=== PATIENT | male | born 1940 | race Caucasian/White ===

== ENCOUNTER → 2016-11-10 | Outpatient (REF) ==
[~2016-11-10] MED LIST: CARDIZEM CD 12120 MG PO; FLOMAX 0.40.4 MG/CAP PO; GLUCOPHAGE XR500 M1 PO; HCTZ12.5TAB PO; LIPITOR 10MG10 MG PO; LUTEIN PO; MULTIVITAMIN1 SGL PO; NORCO 325 MG-51 TAB PO; TOVIAZ4 MG PO; ZETIA 10MG TAB10 MG PO
[2016-11-10 11:24] LABS: PSA-TOTAL 3.12 ng/mL (0-4); THYROID STIMULATING HORMONE 3.79 uIU/mL (0.465-4.680)
== END ==
LOC: ZLAB.WCH 10:38
PROVIDERS: Internal Medicine
DX: Z01.89 Encounter for other specified special examinations (principal)
CPT/HCPCS: G0103

== ENCOUNTER → 2017-05-31 | Outpatient (REF) | LOC: ZLAB.WCH 16:01 | DX: Z01.89 Encounter for other specified special examinations (principal) ==

== ENCOUNTER → 2017-11-29 | Outpatient (REF) ==
[2017-11-29 17:44] LABS: PSA-TOTAL 3.77 ng/mL (0-4)
== END ==
LOC: ZLAB.WCH 16:23
PROVIDERS: Internal Medicine
DX: Z01.89 Encounter for other specified special examinations (principal)
CPT/HCPCS: G0103

== ENCOUNTER → 2017-12-05 | Emergency (ER) | payer MEDICARE, BC, OTHER ==
[~2017-12-05] VITALS: Ht 170.2 cm; Wt 79.1 kg
[~2017-12-05] MED LIST changes: +ASPIRIN 81M81 MG/TA2 PO; +CEPHALEXIN500 M1 PO; +ELIQUIS 5MG PO
[2017-12-05 16:29] VITALS: TEMP 98.6
[2017-12-05 18:55] VITALS: BP 146/105; PULSE 75
== END ==
LOC: COL.ER 16:24
DX: S61.012A Laceration without foreign body of left thumb without damage to nail, initial encounter (principal); E11.9 Type 2 diabetes mellitus without complications; Z79.82 Long term (current) use of aspirin; Z79.84 Long term (current) use of oral hypoglycemic drugs; W26.8XXA Contact with other sharp object(s), not elsewhere classified, initial encounter; Y92.009 Unspecified place in unspecified non-institutional (private) residence as the place of occurrence of the external cause

== ENCOUNTER 2017-12-17 10:01 | Emergency (ER) | payer MEDICARE, BC, OTHER ==
[2017-12-17 10:04] VITALS: BP 161/107; PULSE 87; TEMP 97.5
== END 2017-12-17 10:16 | disposition home or self-care (01) ==
LOC: COL.ER 10:01
DX: S61.012D Laceration without foreign body of left thumb without damage to nail, subsequent encounter (principal); X58.XXXD Exposure to other specified factors, subsequent encounter

== ENCOUNTER 2021-05-06 03:48 | Inpatient (IN) | payer MEDICARE, BC, OTHER ==
[~2021-05-06] VITALS: Ht 165.1 cm; Wt 80.9 kg
[~2021-05-06 03:48] MED LIST changes: +ZOVIRAX400 MG PO
[2021-05-06 04:16] LABS: HEMATOCRIT 40.3 % (42.0-52.0); HEMOGLOBIN 13.6 g/dl (13.5-18.0); MEAN CELL VOLUME 85 fl (80.0-100.0); MEAN CORPUSCULAR HEMOGLOBIN 29 pg (27-31); MEAN CORPUSCULAR HGB CONC 34 g/dl (33.0-37.0); MEAN PLATELET VOLUME 10.4 fl (7.4-10.4); PLATELET COUNT 360 K/mm3 (130-400); RED BLOOD COUNT 4.74 M/mm3 (4.20-5.60); REDCELL DISTRIBUTION WIDTH-CV 14.8 % (11.5-14.5)
[2021-05-06 04:49] LABS: COLLECTION METHOD CLEAN CATCH
[2021-05-06 04:55] LABS: CALCIUM 9.9 mg/dL (8.4-10.2); CREATININE, serum 1.03 mg/dL (0.72-1.25); POTASSIUM 3.7 mmol/L (3.5-4.5); TOTAL PROTEIN 6.8 gm/dL (6.2-8.1)
[2021-05-06 04:55] LABS: LYMPHOCYTE 64 % (20.0-51.0); NEUTROPHILS 27 % (42.0-75.2)
[2021-05-06 04:57] LABS: PLATELET ESTIMATE NORMAL (NORMAL)
[2021-05-06 05:03] LABS: ARTERIAL BLD GAS O2 SATURATION 95.2 % (92-100); ARTERIAL BLD GAS TCO2 CT 20.5; ARTERIAL BLOOD GAS BASE EXCESS -2.7 (-2-2); ARTERIAL BLOOD GAS HCO3 19.6 meq/L (22-26); ARTERIAL BLOOD GAS PCO2 27.8 mmHg (35-45); ARTERIAL BLOOD GAS PO2 69.2 mmHg (80-100); ARTERIAL BLOOD GAS pH 7.47 (7.35-7.45)
[2021-05-06 05:05] LABS: MUCOUS Present (NOT PRESENT); PH 5 (5-8); SQUAMOUS EPITHELIAL None Seen /hpf (0-10); URINE APPEARANCE Clear (CLEAR/HAZY); URINE BACTERIA None Seen /hpf (NONE SEEN); URINE BILIRUBIN Negative (NEGATIVE); URINE BLOOD Negative (NEGATIVE); URINE COLOR Straw (YELLOW); URINE GLUCOSE Negative (NEGATIVE); URINE KETONE Negative (NEGATIVE); URINE LEUKOCYTE ESTERASE Negative (NEGATIVE); URINE NITRATE Negative (NEGATIVE); URINE PROTEIN(semi-quant) Negative (NEGATIVE); URINE RBC 0-2 /hpf (0-2); URINE UROBILINOGEN Negative (NEGATIVE)
[2021-05-06 05:08] LABS: TROPONIN-I 0.065 ng/mL (0.00-0.033)
--- NOTE | 2021-05-06 05:47 | NUR ---
PT HAS BEEN HAVING SOA SINCE 2WEEKS IN APR, HAS BEEN DIAGNOSED W VIRAL PNA- ON ANTIBOTICS BUT DIDNT FEEL LIKE IT WAS BETTER. HX AND ASSESS OBTAINED. POC DISCUSSED. EDDY CROSS AT BEDSIDE TO ASSESS AND GIVE ORDER. PT WANTS TO BE A FULL CODE.
[2021-05-06] MEDS ORDERED: PRINIVIL10 MG PO (06:00)
[2021-05-06] MEDS ORDERED: DITROPAN 5MG TAB5 MG PO (06:03)
[2021-05-06 07:46] VITALS: BP 144/105; PULSE 102; TEMP 98.5
--- NOTE | 2021-05-06 08:00 | NUR ---
Patient sitting up in the recliner. IV CDI. VSS. Denies pain and discomfort. No further needs expressed. Call light within reach
[2021-05-06 08:29] VITALS: BP 143/94
[2021-05-06 12:01] VITALS: BP 130/98; PULSE 74; TEMP 97.6
--- NOTE | 2021-05-06 13:13 | NUR ---
First visit from the financial recruiter. No needs right now.
--- NOTE | 2021-05-06 13:39 | NUR ---
latex foam worker met with patient to discuss discharge plan. Patient currently lives at home with his Margarita ([phone]) but states that they are currently on the waitlist for [facility]. Patient is independent with his ADL's and does not utilizes any DME to assist with mobility. Patient has no oxygen needs at home. PCP is Dr. Moran and he utilizes [facility] for medications. Patient reports that he does have a DPOA-HC established and that his and daughter Jeanette Almendarez ([phone]). Patient is planning on returning home once ready for discharge. Discharge plan: Home
[2021-05-06 14:30] LABS: PARTIAL THROMBOPLASTIN TIME 33.5 SECONDS (26.0-37.0)
[2021-05-06 15:56] VITALS: BP 128/99; PULSE 59; TEMP 98
--- NOTE | 2021-05-06 17:33 | NUR ---
Patient sitting up in the recliner. A&Ox4. VSS. IV CDI, fluids infusing. Denies pain and discomfort. No further needs expressed. Call light within reach
[2021-05-06 19:11] VITALS: BP 126/82; PULSE 48; TEMP 98.3
--- NOTE | 2021-05-06 22:21 | NUR ---
ALERT AND OX4. DENIES SOA, CHEST PAIN OR DIZZY. URINATING ALOT TODAY DUE TO LASIX. HEP GTT RUNNING PER ORDER, ADJUST AT 2000 DRAW BY 150 UNITS/HR TO 1150 UNITS/HR CURRENTLY. PM MEDS GIVEN. HARD TIME SLEEPING IN BED IS RESTING IN RECLINER. ACURATE I/O MAINTAINED. CALL LIGHT WI REACH.
[2021-05-07] VITALS (18 sets, daily range): BP systolic 93–137; BP diastolic 52–110; PULSE 34–99; TEMP 97.6–98.4
--- NOTE | 2021-05-07 02:54 | NUR ---
HEPARIN IS WITHIN THERAPUTIC RANGE. NO CHANGE IN RATE, NEXT PTT AT 0800AM, PT RESTING W EYES CLOSED.
--- NOTE | 2021-05-07 06:17 | NUR ---
RESTED THROUGH THE NIGHT WITHOUT INCIDENT. CALL LIGHT WI REACH. HEPARIN RUNNING PER ORDER.
--- NOTE | 2021-05-07 08:00 | NUR ---
pt alert resting in bed. Assessment completed. Telemetry in place. Heart rate irregular at 90bpm (apical pulse). No shortness of breath noted at rest. Pt has bilateral edema 2+ to lower extremities. Denies c/o pain. INT to right forearm intact no redness, no edema. Pt on NPO status for cardiac catheterization.
[2021-05-07 08:04] LABS: HEMATOCRIT 41.4 % (42.0-52.0); HEMOGLOBIN 14.1 g/dl (13.5-18.0); MEAN CELL VOLUME 84 fl (80.0-100.0); MEAN CORPUSCULAR HEMOGLOBIN 29 pg (27-31); MEAN CORPUSCULAR HGB CONC 34 g/dl (33.0-37.0); PLATELET COUNT 364 K/mm3 (130-400); RED BLOOD COUNT 4.92 M/mm3 (4.20-5.60); REDCELL DISTRIBUTION WIDTH-CV 14.9 % (11.5-14.5)
[2021-05-07 08:11] LABS: CALCIUM 10.5 mg/dL (8.4-10.2); CREATININE, serum 1.14 mg/dL (0.72-1.25); POTASSIUM 3.8 mmol/L (3.5-4.5)
[2021-05-07 08:29] LABS: EOSINOPHIL 1 % (0-4); NEUTROPHILS 21 % (42.0-75.2)
[2021-05-07 08:30] LABS: MICROCYTOSIS 1+; PLATELET ESTIMATE NORMAL (NORMAL)
[2021-05-07 08:32] LABS: LYMPHOCYTE 77 % (20.0-51.0)
--- NOTE | 2021-05-07 08:38 | NUR ---
CRITICAL WBC REPORTED TO TAY MCLAIN.
--- NOTE | 2021-05-07 09:01 | NUR ---
PTT CAME BACK IN GOAL RANGE. THIS IS THE SECOND DRAW WIHIN GOAL, WILL SCHEDULE NEXT PTT FOR TOMORROW MORNING. HEPARIN GTT REMAINS AT 11.5ML/HR.
--- NOTE | 2021-05-07 09:29 | NUR ---
PT SITTING UP ON BENCH. MORNING MEDICATIONS GIVEN BY STUDENT RNFRANK. SHIFT ASSESSMENT COMPLETED. PT DENIES ANY PAIN OR NEEDS. DISCUSSED PLAN OF CARE WITH PT, ALL QUESTIONS ANSWERED. NPO AT THIS TIME. CONTINUING TO MONITOR.
--- NOTE | 2021-05-07 11:20 | NUR ---
PATIENT ALERT AND ORIENTED, VERBALIZES UNDESTANDING PROCEDURE. NO REPORTS OF CHEST PAIN. PLEASE SEE MERGE FOR DOCUMENTATION OF PROCEDURE, MEDICATION ADMINISTRATION AND VS.
--- NOTE | 2021-05-07 11:41 | NUR ---
PT OFF UNIT FOR HEART CATH PROCEDURE.
--- NOTE | 2021-05-07 16:25 | NUR ---
THIS RN INSTRUCTED BY SHAD JENKINS TO D/C IV FLUIDS 4 HOURS AFTER PROCEDURE AND PL[address] PT BACK ON HEPARIN GTT. HEPARIN BOLUS AND HEPARIN GTT STARTED AT THIS TIME PER PROTCOL. CURRENT RATE IS 11.5 ML/HR. PTT RECHECK SCHEDULED FOR 1999.
--- NOTE | 2021-05-07 16:55 | NUR ---
CONTACTED TAY MCLAIN ABOUT INCREASED DYASTOLIC PRESSURES. SHE STATES WE WILL JUST KEEP AN EYE ON IT AT THIS TIME.
--- NOTE | 2021-05-07 20:44 | NUR ---
ALERT AND OX4. DENIES SOA, CHEST PAIN OR DIZZY. EDEMA TO LOWER LEG IMPROVING. CLEAN HEART CATH TR BAND RELEASED. INSTR GIVEN TO NO BEND AT WRIST, CALL IF BLEEDING AND PUT PRESSURE IMMEDIATLY. PT V/U. HEPARIN GTT RUNNING PER ORDER AT 11.5ML/HR. 2200 PTT ORDERED. POC DISCUSSED. CALL LIGHT WI REACH.
--- NOTE | 2021-05-07 23:05 | NUR ---
HEPARIN THERPUTIC RANGE. NO CHANGE- 11.5ML/HR CONTINUES.
[2021-05-08 04:16] VITALS: BP 122/73; PULSE 67; TEMP 97.4
[2021-05-08 04:20] LABS: HEMATOCRIT 37.3 % (42.0-52.0); HEMOGLOBIN 12.5 g/dl (13.5-18.0); MEAN CELL VOLUME 85 fl (80.0-100.0); MEAN CORPUSCULAR HEMOGLOBIN 29 pg (27-31); MEAN CORPUSCULAR HGB CONC 34 g/dl (33.0-37.0); MEAN PLATELET VOLUME 9.9 fl (7.4-10.4); PLATELET COUNT 322 K/mm3 (130-400); RED BLOOD COUNT 4.38 M/mm3 (4.20-5.60); REDCELL DISTRIBUTION WIDTH-CV 14.8 % (11.5-14.5)
[2021-05-08 04:31] LABS: CALCIUM 9.2 mg/dL (8.4-10.2); CREATININE, serum 1.06 mg/dL (0.72-1.25); POTASSIUM 3.2 mmol/L (3.5-4.5)
--- NOTE | 2021-05-08 04:47 | NUR ---
PTT 63.7 WHICH IS GOAL RANGE X 2 NOW. HEPARIN REMAINS AT SAME RATE 11.5ML/HR. PTT ORDERED FOR TOMORROW 11 AM LABS.
[2021-05-08 04:57] LABS: LYMPHOCYTE 68 % (20.0-51.0); NEUTROPHILS 22 % (42.0-75.2)
[2021-05-08 04:58] LABS: PLATELET ESTIMATE NORMAL (NORMAL)
--- NOTE | 2021-05-08 05:54 | NUR ---
RESTED THROUGH THE NIGHT WITHOUT INCIDENT. HEP INFUSING SAME RATE ALL NIGHT WITH NO ISSUES. CALL LIGHT WI REACH.
[2021-05-08 07:42] VITALS: BP 120/68; PULSE 58; TEMP 97.5
[2021-05-08] MEDS ORDERED: TOPROL XL 25MG25 MG PO (09:01)
--- NOTE | 2021-05-08 09:13 | NUR ---
PT SITTING UP IN BED. MORNING MEDICATIONS GIVEN, HEPARIN GTT D/C. SHIFT ASSESSMENT COMPLETED. PT DENIES ANY PAIN OR NEEDS AT THIS TIME. R RADIAL SITE LOOKS GOOD. VSS. PT EAGER TO GO HOME. WILL CONTINUE TO MONITOR.
[2021-05-08] MEDS ORDERED: PRINIVIL5 MG PO (11:27)
[2021-05-08] MEDS ORDERED: K-DUR20 MEQ PO (11:28)
[2021-05-08] MEDS ORDERED: LASIX 40MG TABL40 MG PO (11:30)
--- NOTE | 2021-05-08 12:10 | NUR ---
DISCHARGE INSTRUCTIONS GIVEN, ALL QUESTIONS ANSWERED. IV D/C. WAITING FOR HIS RIDE TO ARRIVE.
--- NOTE | 2021-05-08 12:19 | NUR ---
PT ESCORTED OFF OF UNIT. WILL D/C FROM SYSTEM.
== END 2021-05-08 12:20 | disposition home or self-care (01) | DRG 286 ==
LOC: COL.ER 03:48 → MEDICAL 04:40
PROVIDERS: Family Medicine; Physician Assistant; Student in an Organized Health Care Education/Training Program; ADMIT Internal Medicine
PROC: 4A023N7 Measurement of Cardiac Sampling and Pressure, Left Heart, Percutaneous Approach (ICD-10-PCS; principal; 2021-05-07)
PROC: B2111ZZ Fluoroscopy of Multiple Coronary Arteries using Low Osmolar Contrast (ICD-10-PCS; 2021-05-07)
DX: I11.0 Hypertensive heart disease with heart failure (principal); J18.9 Pneumonia, unspecified organism; I50.21 Acute systolic (congestive) heart failure; C91.10 Chronic lymphocytic leukemia of B-cell type not having achieved remission; I48.20 Chronic atrial fibrillation, unspecified; I24.8 Other forms of acute ischemic heart disease; I42.8 Other cardiomyopathies; E11.9 Type 2 diabetes mellitus without complications; M19.90 Unspecified osteoarthritis, unspecified site; I49.3 Ventricular premature depolarization; I08.0 Rheumatic disorders of both mitral and aortic valves; E87.6 Hypokalemia; Z79.01 Long term (current) use of anticoagulants; Z79.84 Long term (current) use of oral hypoglycemic drugs; Z20.822 Contact with and (suspected) exposure to COVID-19
CPT/HCPCS: 99222-AI; 99233-AI; 99239; C1769; C1887; J0456; J0696; J1644; J1815; J1940; J2250; J3010; J7030; J7050

== ENCOUNTER 2021-06-20 12:13 | Emergency (ER) | payer MEDICARE, BC, OTHER ==
[~2021-06-20] VITALS: Ht 167.6 cm; Wt 81.0 kg
[~2021-06-20 12:13] MED LIST changes: +DITROPAN 5MG TAB5 MG PO; +K-DUR20 MEQ PO; +LASIX 40MG TABL40 MG PO; +PRINIVIL10 MG PO; +PRINIVIL5 MG PO; +TOPROL XL 25MG25 MG PO
[2021-06-20 12:23] VITALS: TEMP 97.8
[2021-06-20 12:50] LABS: HEMATOCRIT 40.1 % (42.0-52.0); HEMOGLOBIN 13.2 g/dl (13.5-18.0); MEAN CELL VOLUME 88 fl (80.0-100.0); MEAN CORPUSCULAR HEMOGLOBIN 29 pg (27-31); MEAN CORPUSCULAR HGB CONC 33 g/dl (33.0-37.0); MEAN PLATELET VOLUME 10.2 fl (7.4-10.4); PLATELET COUNT 247 K/mm3 (130-400); RED BLOOD COUNT 4.57 M/mm3 (4.20-5.60); REDCELL DISTRIBUTION WIDTH-CV 16.8 % (11.5-14.5)
[2021-06-20 12:58] LABS: PROTHROMBIN TIME 22.7 SECONDS (9.7-12.8)
[2021-06-20 13:04] LABS: LYMPHOCYTE 80 % (20.0-51.0); NEUTROPHILS 18 % (42.0-75.2); PLATELET ESTIMATE NORMAL (NORMAL)
[2021-06-20 13:05] LABS: ANISOCYTOSIS 1+
[2021-06-20 13:07] LABS: ALBUMIN 4.3 gm/dL (3.4-4.8); BILIRUBIN,TOTAL 1.6 mg/dL (0.2-1.2); CREATININE, serum 1.36 mg/dL (0.72-1.25); POTASSIUM 4.2 mmol/L (3.5-4.5); TOTAL PROTEIN 6.7 gm/dL (6.2-8.1)
[2021-06-20 13:14] LABS: TROPONIN-I 0.04 ng/mL (0.00-0.033)
[2021-06-20] MEDS ORDERED: LASIX 40MG TABL40 MG PO (13:57)
[2021-06-20 14:11] VITALS: BP 117/103; PULSE 92
== END 2021-06-20 14:15 | disposition home or self-care (01) ==
LOC: COL.ER 12:13
PROVIDERS: Emergency Medicine
DX: I50.9 Heart failure, unspecified (principal); I48.91 Unspecified atrial fibrillation; R77.8 Other specified abnormalities of plasma proteins; R79.89 Other specified abnormal findings of blood chemistry; D72.829 Elevated white blood cell count, unspecified; Z79.01 Long term (current) use of anticoagulants; Z79.899 Other long term (current) drug therapy
CPT/HCPCS: J1940

== ENCOUNTER 2021-07-16 15:14 | Observation (INO) | payer MEDICARE, BC, OTHER ==
[~2021-07-16] VITALS: Ht 167.6 cm; Wt 84.0 kg
[2021-07-16 16:06] LABS: HEMOGLOBIN 13.9 g/dl (13.5-18.0); MEAN CELL VOLUME 91 fl (80.0-100.0); MEAN CORPUSCULAR HEMOGLOBIN 29 pg (27-31); MEAN CORPUSCULAR HGB CONC 32 g/dl (33.0-37.0); PLATELET COUNT 279 K/mm3 (130-400); RED BLOOD COUNT 4.83 M/mm3 (4.20-5.60); REDCELL DISTRIBUTION WIDTH-CV 16.9 % (11.5-14.5)
[2021-07-16 16:16] LABS: ALBUMIN 4.4 gm/dL (3.4-4.8); CALCIUM 10.2 mg/dL (8.4-10.2); CREATININE, serum 1.48 mg/dL (0.72-1.25); POTASSIUM 4.2 mmol/L (3.5-4.5); TOTAL PROTEIN 7.3 gm/dL (6.2-8.1)
[2021-07-16 16:23] LABS: TROPONIN-I 0.044 ng/mL (0.00-0.033)
[2021-07-16 16:54] LABS: ANISOCYTOSIS 1+; BAND 2 % (0-10); EOSINOPHIL 3 % (0-4); HYPOCHROMIA 1+; LYMPHOCYTE 76 % (20.0-51.0); NEUTROPHILS 18 % (42.0-75.2); PLATELET ESTIMATE NORMAL (NORMAL)
[2021-07-16] MEDS ORDERED: LASIX 20MG TABL20 MG PO (19:16)
[2021-07-16] MEDS ORDERED: LASIX 40MG TABL40 MG PO (19:17)
[2021-07-16] MEDS ORDERED: ALBUTEROL0.83 MG/ML IH (19:20)
--- NOTE | 2021-07-16 20:12 | NUR ---
Pt. arrived to the floor via stretcher. Pt. able to transfer to the bed with standby assist. Pt. is A&OX3, assessment complete. INT to lt. wrist patent. Pt. denies pain or other needs, call light within reach.
[2021-07-16 20:53] VITALS: BP 110/89; PULSE 73; TEMP 97.8
[2021-07-16] MEDS ORDERED: K-DUR 10 MEQ T10 MEQ PO (21:51)
[2021-07-17 00:05] VITALS: BP 121/89; PULSE 97; TEMP 97.9
[2021-07-17 04:18] VITALS: BP 114/81; PULSE 80; TEMP 98.4
--- NOTE | 2021-07-17 06:17 | NUR ---
Attempted to notifie Dr. Quarles about consult. No answer.
[2021-07-17 06:25] LABS: HEMOGLOBIN 12.2 g/dl (13.5-18.0); MEAN CELL VOLUME 89 fl (80.0-100.0); MEAN CORPUSCULAR HEMOGLOBIN 29 pg (27-31); MEAN CORPUSCULAR HGB CONC 33 g/dl (33.0-37.0); MEAN PLATELET VOLUME 10.8 fl (7.4-10.4); PLATELET COUNT 225 K/mm3 (130-400); RED BLOOD COUNT 4.17 M/mm3 (4.20-5.60); REDCELL DISTRIBUTION WIDTH-CV 16.5 % (11.5-14.5)
[2021-07-17 06:46] LABS: ALBUMIN 3.6 gm/dL (3.4-4.8); CALCIUM 9.4 mg/dL (8.4-10.2); CREATININE, serum 1.34 mg/dL (0.72-1.25); MAGNESIUM 1.9 mg/dL (1.6-2.6); PHOSPHOROUS 3.6 mg/dL (2.3-4.7); POTASSIUM 3.4 mmol/L (3.5-4.5)
[2021-07-17 07:22] LABS: NEUTROPHILS 22 % (42.0-75.2); OVALOCYTES 1+
[2021-07-17 07:26] LABS: PLATELET ESTIMATE NORMAL (NORMAL)
[2021-07-17 07:27] LABS: LYMPHOCYTE 75 % (20.0-51.0)
[2021-07-17 08:04] VITALS: BP 106/84; PULSE 82; TEMP 97.8
--- NOTE | 2021-07-17 10:00 | NUR ---
SW met with the patient to discuss discharge plan. The [place] with his , Margarita (ph#[phone]). He states that his has Alzheimers, but that their son Yoandy (ph#[phone]) is staying with her while he is here. He states that his sister also lives next door to them. He reports independence with ADLs and does not have any DME. The patient's PCP is Dr. Clifford Moran and he [facility] He receives his medications from [facility], [facility], and on [facility]. The patient does not have a DPOA-HC in EMR, but he states that he does have one completed and that he designated his daughter, Jeanette (ph#[phone]). The patient plans on returning home with his upon discharge. The patient is currently on 1 liter of oxygen. SW to continue to monitor. *Discharge plan: home with *
--- NOTE | 2021-07-17 10:17 | NUR ---
Initial visit; Patient appears to be doing ok and welcomed his food delivery. Billet Header offered God's blessings and a get well message. Patient thanked Billet Header for stopping.
[2021-07-17 11:45] VITALS: BP 122/89; PULSE 73; TEMP 97.8
--- NOTE | 2021-07-17 15:35 | NUR ---
Received report from cage shift manager. Patient alert and oriented x4. VSS. Patient here for CHF exacerbation. Assessment performed. AM meds administered. Patient denies pain at this time. Patient on O2 1L NC. Patient has SOB when talking or ambulating to the bathroom. Call light within reach.
[2021-07-17 16:30] VITALS: BP 109/81; PULSE 82; TEMP 97.9
[2021-07-17 20:43] VITALS: BP 116/82; PULSE 75; TEMP 99.9
[2021-07-18 00:32] VITALS: BP 128/89; PULSE 78; TEMP 98.6
--- NOTE | 2021-07-18 04:33 | NUR ---
pt weaned to RA during the noc, no SOB reported. up to restroom with assist, rec'd 2 units of SSI @HS edema to BLE down to +2. pt has some intermitten confusion, but mostly alert and oriented.
[2021-07-18 04:50] VITALS: BP 95/63; PULSE 74; TEMP 97.5
[2021-07-18 06:19] LABS: HEMOGLOBIN 11.8 g/dl (13.5-18.0); MEAN CELL VOLUME 89 fl (80.0-100.0); MEAN CORPUSCULAR HEMOGLOBIN 29 pg (27-31); MEAN CORPUSCULAR HGB CONC 33 g/dl (33.0-37.0); MEAN PLATELET VOLUME 10.8 fl (7.4-10.4); PLATELET COUNT 213 K/mm3 (130-400); REDCELL DISTRIBUTION WIDTH-CV 16.3 % (11.5-14.5)
[2021-07-18 06:23] LABS: HEMATOCRIT 36.3 % (42.0-52.0)
[2021-07-18 06:42] LABS: ALBUMIN 3.4 gm/dL (3.4-4.8); CALCIUM 9.2 mg/dL (8.4-10.2); CREATININE, serum 1.24 mg/dL (0.72-1.25); MAGNESIUM 2.1 mg/dL (1.6-2.6); PHOSPHOROUS 3.2 mg/dL (2.3-4.7); POTASSIUM 3.6 mmol/L (3.5-4.5)
[2021-07-18 07:37] VITALS: BP 130/85; PULSE 109; TEMP 97.7
[2021-07-18 07:50] LABS: ANISOCYTOSIS 1+; NEUTROPHILS 16 % (42.0-75.2); PLATELET ESTIMATE NORMAL (NORMAL)
[2021-07-18 07:51] LABS: LYMPHOCYTE 75 % (20.0-51.0)
--- NOTE | 2021-07-18 09:37 | NUR ---
Follow-up visit; Zeb states he is doing well and is enjoying his breakfast from the window seat in his room. Presser Hand offered God's blessings to Zeb and a get well message.
[2021-07-18] MEDS ORDERED: LASIX 40MG TABL40 MG PO (10:08)
--- NOTE | 2021-07-18 10:25 | NUR ---
PT SITTING UP ON COUCH ON ROOM AIR. PT STATES THAT HE IS NOT HAVING ANY SOB OR PAIN AT THIS TIME. PT STATES "IM READY TO GET OUT OF HERE TODAY." PT STATES NO NEEDS OR CONCERNS AT THIS TIME. CALL LIGHT IS WITHIN REACH.
[2021-07-18 11:51] VITALS: BP 121/80; PULSE 86; TEMP 97.9
--- NOTE | 2021-07-18 13:58 | NUR ---
PHASE 1 CR REFERRAL- REVIEWED CHF EDUCATION BOOKLET. SCHEDULED FOR CARDIAC REHAB - PHASE 2 (WILL NEED TO WAIT 6 WEEKS FOR INSURANCE COVERED PROGRAM). PT REQUESTED SELF PAY PHASE 3 PROGRAM - SCHEDULED FOR 07/23/21, THEN WILL CONVERT TO PHASE2 IF PT HAS NOT TRANSITIONED TO [place].
== END 2021-07-18 13:05 | disposition home or self-care (01) ==
LOC: COL.ER 15:14 → MEDICAL 17:07 → SURG 07-18 10:42 → MEDICAL 07-18 13:05
PROVIDERS: Emergency Medicine; ADMIT Internal Medicine
DX: J96.01 Acute respiratory failure with hypoxia (principal); I11.0 Hypertensive heart disease with heart failure; I50.23 Acute on chronic systolic (congestive) heart failure; E87.6 Hypokalemia; R77.8 Other specified abnormalities of plasma proteins; I48.20 Chronic atrial fibrillation, unspecified; E11.9 Type 2 diabetes mellitus without complications; E78.5 Hyperlipidemia, unspecified; I08.0 Rheumatic disorders of both mitral and aortic valves; C91.10 Chronic lymphocytic leukemia of B-cell type not having achieved remission; Z79.84 Long term (current) use of oral hypoglycemic drugs; Z79.01 Long term (current) use of anticoagulants; Z79.899 Other long term (current) drug therapy
CPT/HCPCS: 99239; G0378; J1815; J1940

== ENCOUNTER 2021-07-25 12:14 | Outpatient (RCR) | payer SELFPAY ==
[~2021-07-25 12:14] MED LIST changes: +ALBUTEROL0.83 MG/ML IH; +K-DUR 10 MEQ T10 MEQ PO; +LASIX 20MG TABL20 MG PO
== END 2021-07-29 ==
LOC: COL.CR
DX: Z29.8 Encounter for other specified prophylactic measures (principal)

== ENCOUNTER 2021-07-30 03:45 | Outpatient (RCR) | payer SELFPAY | END 2021-08-28 | LOC: COL.CR | DX: Z29.8 Encounter for other specified prophylactic measures (principal) ==

== ENCOUNTER 2021-08-29 15:08 | Outpatient (RCR) | payer SELFPAY | END 2021-09-28 | LOC: COL.CR | DX: Z29.8 Encounter for other specified prophylactic measures (principal) ==